=== PATIENT | female | born 1990 | race Caucasian/White ===

== ENCOUNTER 2018-05-22 18:48 | Emergency (ER) | payer BC, OTHER ==
[2018-05-22] MEDS ORDERED: LIDOCAINE 4%/MENTHOL 1% PATCH TD ONE (19:43)
[2018-05-22] MEDS ORDERED: KETOROLAC 15 MG/1 ML SDV IVP ONE (19:43)
[2018-05-22] MEDS ORDERED: NS 1,000 ML IV ONE (19:43)
--- NOTE | 2018-05-22 19:44 | EDPHY ---
H & P Time Seen by Provider: 05/22/18 19:27 HPI/ROS: CHIEF COMPLAINT: Low back pain HISTORY OF PRESENT ILLNESS: Patient here with right-sided low back pain the last 24 hr. There was no injury. She denies any pain with urination fever. She has seen at urgent care she thought she had a kidney infection but urinalysis was negative for infection or . She was sent here for further evaluation. She has prior history of pyelonephritis but otherwise no history of abdominal surgeries or renal colic or biliary colic. REVIEW OF SYSTEMS: Constitutional: No fever, no chills. Eyes: No discharge. ENT: No sore throat. Cardiovascular: No chest pain, no palpitations. Respiratory: No cough, no shortness of breath. Gastrointestinal: No abdominal pain, no vomiting. Genitourinary: No hematuria. Musculoskeletal: No back pain. Skin: No rashes. Neurological: No headache. Smoking Status: Never smoked Physical Exam: General Appearance: Alert and no distress. Eyes: Pupils equal and round no injection. Respiratory: Chest is nontender, lungs are clear to auscultation. Cardiac: regular rate and rhythm. Gastrointestinal: Abdomen is soft and nontender, no masses, bowel sounds normal. Musculoskeletal: Neck is supple and nontender. Tenderness to the right paraspinous muscles and right CVA Extremities have full range of motion and are nontender. Skin: No rashes or lesions. Constitutional: Initial Vital Signs Temperature (C) 36.6 C 05/22/18 18:58 Heart Rate 86 05/22/18 18:58 Respiratory Rate 16 05/22/18 18:58 Blood Pressure 130/86 H 05/22/18 18:58 O2 Sat (%) 95 05/22/18 18:58 O2 Delivery Mode Room Air Allergies/Adverse Reactions: No Known Allergies Allergy (Verified 05/22/18 18:58) Home Medications: Medication Instructions Recorded Lidocaine [Lidoderm] 700 mg TP DAILY #30 adh..patch 05/22/18 Medical Decision Making - Diagnostics Imaging Results: Imaging Impressions Abdomen/Pelvis CT 05/22/18 19:43 Impression: 1. Normal. No explanation for right-sided flank pain. No nephrolithiasis or hydroureteronephrosis. 2. No localized inflammatory process or evidence of pancreatitis. Findings discussed with emergency department physician underwriting assistant, Vikash Ponce PA-C on May 22, 2018 at 8:07 p.m. Attention: This CT examination is specifically designed to evaluate patients who are clinically suspected of having acute obstructive uropathy. This examination does not use radiographic contrast, and as such, provides only a limited evaluation of the abdomen, pelvis, and retroperitoneum. If there is further clinical suspicion for pathological conditions other than obstructive uropathy, a complete CT evaluation of the abdomen and pelvis utilizing intravenous, oral, and rectal contrast should be considered. ED Course/Re-evaluation: Patient here with low back pain. Urinalysis reveals no evidence of infection or . Labs reveal no leukocytosis or evidence of biliary disease. CT scan reveals no acute intra-abdominal process or lumbar spine process. She is reassured this is likely muscle skeletal feels greatly improved after lidocaine patch and IV Toradol. - Data Points Laboratory Results: Laboratory Results 05/22/18 19:35 05/22/18 19:35 05/22/18 05/22/18 05/22/18 19:35 19:35 19:30 WBC 9.91 10^3/uL H 10^3/uL (3.80-9.50) RBC 5.04 10^6/uL 10^6/uL (4.18-5.33) Hgb 16.2 g/dL g/dL (12.6-16.3) Hct 46.5 % % (38.0-47.0) MCV 92.3 fL fL (81.5-99.8) MCH 32.1 pg pg (27.9-34.1) MCHC 34.8 g/dL g/dL (32.4-36.7) RDW 12.2 % % (11.5-15.2) Plt Count 246 10^3/uL 10^3/uL (150-400) MPV 9.4 fL fL (8.7-11.7) Neut % (Auto) 63.2 % % (39.3-74.2) Lymph % (Auto) 28.2 % % (15.0-45.0) Ross % (Auto) 6.9 % % (4.5-13.0) Eos % (Auto) 0.7 % % (0.6-7.6) Baso % (Auto) 0.7 % % (0.3-1.7) Nucleat RBC Rel Count 0.0 % % (0.0-0.2) Absolute Neuts (auto) 6.27 10^3/uL 10^3/uL (1.70-6.50) Absolute Lymphs (auto) 2.79 10^3/uL 10^3/uL (1.00-3.00) Absolute Monos (auto) 0.68 10^3/uL 10^3/uL (0.30-0.80) Absolute Eos (auto) 0.07 10^3/uL 10^3/uL (0.03-0.40) Absolute Basos (auto) 0.07 10^3/uL 10^3/uL (0.02-0.10) Absolute Nucleated RBC 0.00 10^3/uL 10^3/uL (0-0.01) Immature Gran % 0.3 % % (0.0-1.1) Immature Gran # 0.03 10^3/uL 10^3/uL (0.00-0.10) Sodium 138 mEq/L mEq/L (135-145) Potassium 4.1 mEq/L mEq/L (3.3-5.0) Chloride 101 mEq/L mEq/L (97-110) Carbon Dioxide 26 mEq/l mEq/l (22-31) Anion Gap 11 mEq/L mEq/L (8-16) BUN 17 mg/dL mg/dL (7-23) Creatinine 0.9 mg/dL mg/dL (0.6-1.0) Estimated GFR > 60 Glucose 91 mg/dL mg/dL (70-100) Calcium 10.1 mg/dL mg/dL (8.5-10.4) Total Bilirubin 1.2 mg/dL mg/dL (0.1-1.4) AST 34 IU/L IU/L (14-46) ALT 37 IU/L IU/L (9-52) Alkaline Phosphatase 79 IU/L IU/L (38-126) Total Protein 8.3 g/dL H g/dL (6.3-8.2) Albumin 4.8 g/dL g/dL (3.5-5.0) Lipase 195 IU/L IU/L (23-300) Urine Color PALE YELLOW Urine Appearance CLEAR Urine pH 6.0 (5.0-7.5) Ur Specific [place] 1.005 (1.002-1.030) Urine Protein NEGATIVE (NEGATIVE) Urine Ketones NEGATIVE (NEGATIVE) Urine Blood NEGATIVE (NEGATIVE) Urine Nitrate NEGATIVE (NEGATIVE) Urine Bilirubin NEGATIVE (NEGATIVE) Urine Urobilinogen NEGATIVE EU EU (0.2-1.0) Ur Leukocyte Esterase NEGATIVE (NEGATIVE) Urine Glucose NEGATIVE (NEGATIVE) Medications Given: Discontinued Medications Sodium Chloride (Ns) 1,000 mls @ 0 mls/hr IV EDNOW ONE; Wide Open PRN Reason: Protocol Stop: 05/22/18 19:44 Last Admin: 05/22/18 19:56 Dose: 1,000 mls Ketorolac Tromethamine (Toradol) 15 mg IVP EDNOW ONE Stop: 05/22/18 19:44 Last Admin: 05/22/18 19:56 Dose: 15 mg Miscellaneous Information (Patch Removal) 1 ea TD DAILY21 [place] Stop: 11/18/18 20:59 Last Admin: 05/22/18 19:58 Dose: 1 ea Miscellaneous Medication (Icy Hot Lidocaine/Menthol 4%/1% Patch) 1 patch TD EDNOW ONE Stop: 05/22/18 19:44 Last Admin: 05/22/18 19:56 Dose: 1 patch Departure - Departure Disposition: Home, Routine, Self-Care Clinical Impression: Flank pain, Lumbar strain Condition: Good Instructions: Flank Pain (ED) Additional Instructions: All through the exact source of you're pain is unclear this is likely a strain of the muscles in her low back. If he have worsening symptoms including fever, blood in her urine, rash or other worsening or worrisome symptoms please return to the ER for further evaluation. Otherwise continue use the lidocaine patch we applied today as directed and take Motrin 600 mg 3 times a day for the next 5 days. Follow up her primary care doctor if pain persists. Referrals: NONE *PRIMARY CARE P,. [Primary Care Provider] - As per Instructions Prescriptions: Lidocaine [Lidoderm] 700 mg TP DAILY #30 adh..patch
[2018-05-22 19:50] LABS: PLATELET COUNT 246 10^3/uL (150-400)
[2018-05-22] MEDS ORDERED: PATCH REMOVAL 1 EA PATCH TD SCH (21:00)
[2018-05-22 21:21] VITALS: BP 122/73
== END 2018-05-22 21:20 | disposition home or self-care (01) ==
DX: R10.31 Right lower quadrant pain (principal); E86.9 Volume depletion, unspecified; Z87.448 Personal history of other diseases of urinary system
CPT/HCPCS: 96374; J1885